=== PATIENT | female | born 1945 | race Caucasian/White ===

== ENCOUNTER 2024-07-17 09:50 | Outpatient (CLI) | payer OTHER | END 2024-07-17 09:51 | disposition home or self-care (01) | LOC: CSHMAMMO 09:50 | PROVIDERS: ATTEND Family Medicine | DX: Z12.31 Encounter for screening mammogram for malignant neoplasm of breast (principal) | CPT/HCPCS: 77063; 77067 ==

== ENCOUNTER 2025-04-01 10:16 | Outpatient (CLI) | payer OTHER | END 2025-04-01 10:17 | disposition home or self-care (01) | LOC: CSHULT 10:16 | PROVIDERS: ATTEND Urology | DX: N39.46 Mixed incontinence (principal) | CPT/HCPCS: 76770 ==